=== PATIENT | female | born 2000 | race Caucasian/White ===

== ENCOUNTER 2023-05-25 12:25 | Emergency (ER) | payer OTHER ==
[2023-05-25 13:11] VITALS: RESP 16
[2023-05-25] MEDS ORDERED: SODIUM CHLORIDE 0.9% 2,000 ML IV STA (13:30)
[2023-05-25] MEDS ORDERED: guaiFENesin SYRUP 100MG/5ML 200 MG/10 ML CUP PO ONE (13:36)
[2023-05-25] MEDS ORDERED: METOCLOPRAMIDE 5 MG/ML 2 ML VIAL IVP STA (13:36)
[2023-05-25] MEDS ORDERED: ALBUTEROL NEBULIZED 2.5 MG/3 ML INHALATION STA (13:38)
--- NOTE | 2023-05-25 13:47 | XR ---
EXAMINATION TYPE: XR chest 2V DATE OF EXAM: 05/25/2023 1:38 PM COMPARISON: None TECHNIQUE: XR chest 2V Frontal and lateral views of the chest. CLINICAL INDICATION:Female, 22 years old with history of Cough, TERESA; FINDINGS: Lungs/Pleura: There is no evidence of pleural effusion, focal consolidation, or pneumothorax. Pulmonary vascularity: Unremarkable. Heart/mediastinum: Cardiomediastinal silhouette is unremarkable. Musculoskeletal: No acute osseous pathology. IMPRESSION: No acute cardiopulmonary disease/process.
--- NOTE | 2023-05-25 14:02 | ED ---
URI HPI - General Chief Complaint: Upper Respiratory Infection Stated Complaint: URI Time Seen by Provider: 05/25/23 13:21 Source: patient, RN notes reviewed Mode of arrival: ambulatory Limitations: no limitations - History of Present Illness Initial Comments: this is a 22-year-old female who presents to the emergency department for coughing and congestion. Patient reports ongoing coughing and congestion for about 3 weeks. Patient is 12 weeks . She went to urgent care 2 days ago and had a negative strep test. She was not tested for Covid, influenza, or RSV. She was started on amoxicillin. She took this as prescribed yesterday, but states that she proceeded to vomit a couple of times and is unsure if it was related to the antibiotic, so she did not take it today. She is still having some intermittent nausea. Patient states that she is never sick this long and is concerned about the duration of her symptoms. Denies any fevers, chills, or sick contacts. Denies any shortness of breath or chest pain. Denies any fevers, chills, sore throat, dyspnea, chest pain, palpitations, abdominal pain, diarrhea, back pain, or headaches. MD Complaint: cough, nasal congestion Onset/Timin -: week(s) - Related Data Home Medications Medication Instructions Recorded Confirmed Amoxicillin 500 mg PO Q8H 05/25/23 05/25/23 Kwh-Vvct-Ljolx Acid 1 cap PO DAILY 05/25/23 05/25/23 [-U Capsule (formulary)] Previous Rx's Medication Instructions Recorded Metoclopramide [Reglan] 10 mg PO Q6H PRN #30 tab 05/25/23 Allergies Allergy/AdvReac Type Severity Reaction Status Date / Time No Known Allergies Allergy Verified 05/25/23 14:59 Review of Systems ROS Statement: Those systems with pertinent positive or pertinent negative responses have been documented in the HPI. ROS Other: All systems not noted in ROS Statement are negative. Past Medical History Past Medical History: No Reported History History of Any Multi-Drug Resistant Organisms: None Reported Past Surgical History: No Surgical Hx Reported Past Psychological History: Bipolar Smoking Status: Never smoker Past Alcohol Use History: None Reported Past Drug Use History: None Reported General Exam Limitations: no limitations General appearance: alert, in no apparent distress Head exam: Present: atraumatic, normocephalic, normal inspection Respiratory exam: Present: normal lung sounds bilaterally. Absent: respiratory distress, wheezes, rales, rhonchi, stridor Cardiovascular Exam: Present: regular rate, normal rhythm, normal heart sounds. Absent: systolic murmur, diastolic murmur, rubs, gallop, clicks Neurological exam: Present: alert, oriented X3, CN II-XII intact Psychiatric exam: Present: normal affect, normal mood Skin exam: Present: warm, dry, intact, normal color. Absent: rash Course Vital Signs 05/25/23 05/25/23 05/25/23 12:52 14:09 14:20 Temperature 98.6 F Pulse Rate 100 77 80 Respiratory 16 Rate Blood Pressure 110/56 O2 Sat by Pulse 95 Oximetry 05/25/23 16:03 Temperature 98 F Pulse Rate 78 Respiratory 16 Rate Blood Pressure 121/70 O2 Sat by Pulse 98 Oximetry Medical Decision Making - Medical Decision Making this is a 22-year-old female who presents to the emergency department for coughing and congestion. Was pt. sent in by a medical professional or institution? @ -No Did you speak to anyone other than the patient for history? @ -No Did you review nursing and triage notes? @ -Yes, and I agree, it is accurate with regards to the patient's symptoms. Were old charts reviewed? @ -No Differential Diagnosis? @ -Differential Cough: Influenza, Covid, RSV, croup, allergic rhinitis, GERD, pneumonia, bronchitis, COPD, viral pharyngitis, streptococcal pharyngitis, this is not meant to be an all-inclusive list. EKG interpreted by me (3pts min.)? @ -Not obtained X-rays interpreted by me (1pt min.)? @ -Chest x-ray obtained, my interpretation identifies no localized consolidations or infiltrates. CT interpreted by me (1pt min.)? @ -Not obtained U/S interpreted by me (1pt. min.)? @ -Not obtained What testing was considered but not performed? (CT, X-rays, U/S, labs)? Why? @ -None What meds were considered but not given? Why? @ -I offered IV fluids and Reglan for the nausea and vomiting, however the patient declined. Did you discuss the management of the patient with other professionals? @ -No Did you reconcile home meds? @ -No Was smoking cessation discussed for >3mins.? @ -No Was critical care preformed (if so, how long)? @ -No Were there social determinants of health that impacted care today? How? (Homelessness, low income, unemployed, alcoholism, drug addiction, transportation, low edu. Level, literacy, decrease access to med. care, nursing home, rehab)? @ -No Was there de-escalation of care discussed even if they declined? (Discuss DNR or withdrawal of care, Hospice)? @ -No What co-morbidities impacted this encounter? (DM, HTN, Smoking, COPD, CAD, Cancer, CVA, Hep., AIDS, mental health diagnosis, sleep apnea, morbid obesity)? @ - Was patient admitted / discharged? @ -Discharged. Lab work obtained revealing a low glucose of 62, likely due to the patient's nausea and vomiting and not having much to eat today. She did end up eating while in the emergency department. Patient positive for COVID-19. However, she is no longer in the time frame for antiviral treatment. We discussed a chest x-ray in , in that the chest x-ray does pose radi ation exposure, however there have not been any complications linked to a chest x-ray in , as the x-ray beams do not affect the reproductive organs. Patient is agreeable to this and a chest x-ray was obtained. Chest x-ray reveals no acute process. I did offer IV fluids and Reglan due to the nausea and vomiting, however the patient declined. We also discussed symptomatic management with medications such as an albuterol breathing treatment and Robitussin, and patient was also agreeable to these, and both of them were administered. Prescription for Reglan provided with dosing instructions reviewed for the nausea and vomiting. Advised she slowly advance her diet as tolerated and remain well-hydrated. Also advised that she can take the antibiotic as prescribed by urgent care if she is able to keep it down, however given that she has COVID, this will likely not be of any benefit. We also discussed hupr-ufk-apodedg treatment options for management of her symptoms, and I advised she also check with her TRAUMA PROGRAM MANAGER for treatment options. Patient discharged home in stable condition. Undiagnosed new problem with uncertain prognosis? @ -None Drug Therapy requiring intensive monitoring for toxicity (Heparin, Nitro, Insulin, Cardizem)? @ -None Were any procedures done? @ -None Diagnosis/symptom? @ -COVID-19, nausea and vomiting Acute, or Chronic, or Acute on Chronic? @ -Acute Uncomplicated (without systemic symptoms) or Complicated (systemic symptoms)? @ -Uncomplicated Side effects of treatment? @ -None Exacerbation, Progression, or Severe Exacerbation] @ -Not applicable Poses a threat to life or bodily function? @ -No Return precautions reviewed in depth, the patient is instructed to return to the emergency department with any new, worsening, or concerning symptoms. Patient verbalized understanding. This case was discussed in detail with the attending ED physician, Dr. Martinez. Presentation, findings, and treatment plan discussed in detail as well. - Lab Data Result diagrams: 05/25/23 13:53 05/25/23 13:53 Lab Results 05/25/23 05/25/23 05/25/23 Range/Units 13:53 13:53 13:53 WBC 11.6 H (3.8-10.6) k/uL RBC 3.80 (3.80-5.40) m/uL Hgb 12.3 (11.4-16.0) gm/dL Hct 35.2 (34.0-46.0) % MCV 92.8 (80.0-100.0) fL MCH 32.4 (25.0-35.0) pg MCHC 34.9 (31.0-37.0) g/dL RDW 12.0 (11.5-15.5) % Plt Count 219 (150-450) k/uL MPV 8.0 Neutrophils % 85 % Lymphocytes % 6 % Monocytes % 6 % Eosinophils % 1 % Basophils % 0 % Neutrophils # 9.9 H (1.3-7.7) k/uL Lymphocytes # 0.7 L (1.0-4.8) k/uL Monocytes # 0.7 (0-1.0) k/uL Eosinophils # 0.1 (0-0.7) k/uL Basophils # 0.0 (0-0.2) k/uL Sodium 134 L (137-145) mmol/L Potassium 3.8 (3.5-5.1) mmol/L Chloride 104 (98-107) mmol/L Carbon Dioxide 19 L (22-30) mmol/L Anion Gap 11 mmol/L BUN 9 (7-17) mg/dL Creatinine 0.37 L (0.52-1.04) mg/dL Est GFR (CKD-EPI)AfAm >90 (>60 ml/min/1.73 sqM) Est GFR (CKD-EPI)NonAf >90 (>60 ml/min/1.73 sqM) Glucose 62 L (74-99) mg/dL Calcium 9.0 (8.4-10.2) mg/dL Total Bilirubin 0.6 (0.2-1.3) mg/dL AST 27 (14-36) U/L ALT 12 (4-34) U/L Alkaline Phosphatase 70 (38-126) U/L Total Protein 7.2 (6.3-8.2) g/dL Albumin 3.8 (3.5-5.0) g/dL Influenza Type A (PCR) Not Detected (Not Detectd) Influenza Type B (PCR) Not Detected (Not Detectd) RSV (PCR) Not Detected (Not Detectd) SARS-CoV-2 (PCR) Detected A (Not Detectd) - Radiology Data Radiology results: report reviewed, image reviewed Disposition Clinical Impression: Nausea and vomiting, COVID-19 Disposition: HOME SELF-CARE Instructions (If sedation given, give patient instructions): Coronavirus Disease 2019 (COVID-19), How to Recover from COVID-19 at Home (ED) Additional Instructions: Return to the emergency department with any new, worsening, or concerning symptoms. You can take the Reglan up to every 6 hours as needed for nausea and vomiting. Continue taking your antibiotic as prescribed if you are able to keep it down. Icwk-jgu-hsvzczh cough medicine such as Robitussin is generally considered safe in . Make sure that this does not contain alcohol. You can also have ybys-kar-kvbgrmk antihistamines such as Benadryl and chlor-trimeton. Flonase nasal spray and Vicks vapor rub are other options. Follow up with your primary care provider in 1-2 days. Prescriptions: Metoclopramide [Reglan] 10 mg PO Q6H PRN #30 tab PRN Reason: Nausea And Vomiting Is patient prescribed a controlled substance at d/c from ED?: No Referrals: None,Stated [Primary Care Provider] - 1-2 days
[2023-05-25 14:23] LABS: Basophils % (A) 0 %; Eosinophils # (A) 0.1 k/uL (0-0.7); Eosinophils % (A) 1 %; HCT 35.2 % (34.0-46.0); HGB 12.3 gm/dL (11.4-16.0); Lymphocytes # (A) 0.7 k/uL (1.0-4.8); Lymphocytes % (A) 6 %; MCH 32.4 pg (25.0-35.0); MCHC 34.9 g/dL (31.0-37.0); MCV 92.8 fL (80.0-100.0); Monocytes # (A) 0.7 k/uL (0-1.0); Monocytes % (A) 6 %; Neutrophils # (A) 9.9 k/uL (1.3-7.7); Neutrophils % (A) 85 %; Platelet Count 219 k/uL (150-450); WBC 11.6 k/uL (3.8-10.6)
[2023-05-25 14:41] LABS: ALT 12 U/L (4-34); AST 27 U/L (14-36); African American GFR (CKD) >90 (>60 ml/min/1.73 sqM); Albumin 3.8 g/dL (3.5-5.0); Alkaline Phosphatase 70 U/L (38-126); Anion Gap 11 mmol/L; Blood Urea Nitrogen 9 mg/dL (7-17); Carbon Dioxide 19 mmol/L (22-30); Chloride 104 mmol/L (98-107); Glucose 62 mg/dL (74-99); Non-African American GFR(CKD) >90 (>60 ml/min/1.73 sqM); Potassium 3.8 mmol/L (3.5-5.1); Sodium 134 mmol/L (137-145); Total Bilirubin 0.6 mg/dL (0.2-1.3); Total Protein 7.2 g/dL (6.3-8.2)
[2023-05-25 16:19] VITALS: BP 121/70; PULSE 78; TEMP 98
== END 2023-05-25 16:02 | disposition home or self-care (01) ==
LOC: EC 12:25
DX: O98.511 Other viral diseases complicating pregnancy, first trimester (principal); U07.1 COVID-19; Z3A.12 12 weeks gestation of pregnancy
CPT/HCPCS: 36415; 71046; 80053; 85025; 87636; 94640; 99283

== ENCOUNTER 2023-06-20 17:11 | Emergency (ER) | payer OTHER ==
[2023-06-20 17:16] VITALS: TEMP 98.3
--- NOTE | 2023-06-20 17:38 | ED ---
General Adult HPI - General Chief complaint: Abdominal Pain Stated complaint: Cramping 17 weeks Time Seen by Provider: 06/20/23 17:16 Source: patient, RN notes reviewed Mode of arrival: ambulatory Limitations: no limitations - History of Present Illness Initial comments: Patient is a 22-year-old female presented ER with chief complaint of increased uterine cramping. Patient is a at 17 weeks' gestation. Patient states her SURGICAL INSTRUMENT REPAIR SPECIALIST is out of [facility] and told her she has a low lying placenta. Patient reports she has had increasing cramping in the past hour which is more prominent on the right side. She denies any vaginal bleeding or discharge. She denies any fevers, chills, nightsweats, chest pain, shortness of breath, urinary complaints. - Related Data Home Medications Medication Instructions Recorded Confirmed Amoxicillin 500 mg PO Q8H 05/25/23 05/25/23 Aqz-Gkoy-Ocwbq Acid 1 cap PO DAILY 05/25/23 05/25/23 [-U Capsule (formulary)] Previous Rx's Medication Instructions Recorded Metoclopramide [Reglan] 10 mg PO Q6H PRN #30 tab 05/25/23 Allergies Allergy/AdvReac Type Severity Reaction Status Date / Time No Known Allergies Allergy Verified 06/20/23 17:13 Review of Systems ROS Statement: Those systems with pertinent positive or pertinent negative responses have been documented in the HPI. ROS Other: All systems not noted in ROS Statement are negative. Past Medical History Past Medical History: No Reported History History of Any Multi-Drug Resistant Organisms: None Reported Past Surgical History: No Surgical Hx Reported Past Psychological History: Bipolar Smoking Status: Never smoker Past Alcohol Use History: None Reported Past Drug Use History: None Reported General Exam Limitations: no limitations General appearance: alert, in no apparent distress Respiratory exam: Present: normal lung sounds bilaterally. Absent: respiratory distress, wheezes, rales, rhonchi, stridor Cardiovascular Exam: Present: regular rate, normal rhythm, normal heart sounds. Absent: systolic murmur, diastolic murmur, rubs, gallop, clicks GI/Abdominal exam: Present: soft, tenderness (suprapubic), normal bowel sounds Neurological exam: Present: alert, oriented X3, CN II-XII intact Psychiatric exam: Present: normal affect, normal mood Skin exam: Present: warm, dry, intact, normal color. Absent: rash Course Vital Signs 06/20/23 06/20/23 06/20/23 17:13 18:57 20:16 Temperature 98.3 F Pulse Rate 69 78 73 Respiratory 16 18 17 Rate Blood Pressure 115/73 127/64 110/57 O2 Sat by Pulse 100 99 100 Oximetry Medical Decision Making - Medical Decision Making Was pt. sent in by a medical professional or institution (, PA, MAIL PROCESSING MACHINE OPERATOR, urgent care, hospital, or [facility]...) When possible be specific @ -No Did you speak to anyone other than the patient for history (EMS, parent, family, police, friend...)? What history was obtained from this source @ -No Did you review nursing and triage notes (agree or disagree)? Why? @ -I reviewed and agree with nursing and triage notes Were old charts reviewed (outside hosp., previous admission, EMS record, old EKG, old radiological studies, urgent care reports/EKG's, [facility] records)? Report findings @ -No old charts were reviewed Differential Diagnosis (chest pain, altered mental status, abdominal pain women, abdominal pain men, vaginal bleeding, weakness, fever, dyspnea, syncope, heada robby, dizziness, GI bleed, back pain, seizure, CVA, palpatations, mental health, musculoskeletal)? @ -Differential Abdominal Pain Women: Appendicitis, Cholecystitis, diverticulosis, ischemic bowel, pancreatitis, hepatitis, UTI, gastroenteritis, AAA, incarcerated hernia, bowel obstruction, constipation, inflammatory bowel, hepatitis, peptic ulcer disease, splenic infarction, perforated viscus, vulvitis, ovarian torsion, PID, kidney stone, placenta abruption, this is not meant to be an all-inclusive listcable EKG interpreted by me (3pts min.). @ -None X-rays interpreted by me (1pt min.). @ -None done CT interpreted by me (1pt min.). @ -None done U/S interpreted by me (1pt. min.). @ -Transabdominal ultrasound shows a single IUP measuring 17 weeks 3 days. GERALDINE is 14.5 cm. Cervical length is slightly below normal with no evidence of funneling or placenta previa. What testing was considered but not performed or refused? (CT, X-rays, U/S, labs)? Why? @ -None What meds were considered but not given or refused? Why? @ -None Did you discuss the management of the patient with other professionals (professionals i.e. , PA, MAIL PROCESSING MACHINE OPERATOR, lab, RT, psych nurse, nephrology social worker, surveillance observer, teacher, field crop technical officer, continuous pillowcase cutter)? Give summary @ -No Was smoking cessation discussed for >3mins.? @ -No Was critical care preformed (if so, how long)? @ -No Were there social determinants of health that impacted care today? How? (Ho melessness, low income, unemployed, alcoholism, drug addiction, transportation, low edu. Level, literacy, decrease access to med. care, group home, rehab)? @ -No Was there de-escalation of care discussed even if they declined (Discuss DNR or withdrawal of care, Hospice)? DNR status @ -No What co-morbidities impacted this encounter? (DM, HTN, Smoking, COPD, CAD, Cancer, CVA, ARF, Chemo, Hep., AIDS, mental health diagnosis, sleep apnea, morbid obesity)? @ -None Was patient admitted / discharged? Hospital course, mention meds given and route, prescriptions, significant lab abnormalities, going to OR and other pertinent info. @ -Discharge. Labs obtained in the ER were within normal limits. Urine analysis was negative. Ultrasound shows a single IUP measuring 17 weeks 3 days. GERALDINE is 14.5 cervical length is slightly below normal. Patient was discharged home in stable condition with follow-up to her SURGICAL INSTRUMENT REPAIR SPECIALIST. I discussed with the patient's reasons for returning to the ER including vaginal bleeding, increasing cramping or any change in her symptoms. Patient expressed understanding and agreement with care plan. Undiagnosed new problem with uncertain prognosis? @ -No Drug Therapy requiring intensive monitoring for toxicity (Heparin, Nitro, Insulin, Cardizem)? @ -No Were any procedures done? @ -No Diagnosis/symptom? @ -Uterine cramping/ Acute, or Chronic, or Acute on Chronic? @ -Acute Uncomplicated (without systemic symptoms) or Complicated (systemic symptoms)? @ -Uncomplicated Side effects of treatment? @ -No Exacerbation, Progression, or Severe Exacerbation? @ -No Poses a threat to life or bodily function? How? (Chest pain, [place], NH, pneumonia, PE, COPD, DKA, ARF, appy, cholecystitis, CVA, Diverticulitis, Homicidal, Suicidal, threat to staff... and all critical care pts) @ -No - Lab Data Result diagrams: 06/20/23 17:37 06/20/23 17:37 Lab Results 06/20/23 06/20/23 06/20/23 Range/Units 17:37 17:37 17:37 WBC 10.8 H (3.8-10.6) k/uL RBC 3.55 L (3.80-5.40) m/uL Hgb 11.9 (11.4-16.0) gm/dL Hct 33.4 L (34.0-46.0) % MCV 94.0 (80.0-100.0) fL MCH 33.5 (25.0-35.0) pg MCHC 35.7 (31.0-37.0) g/dL RDW 12.0 (11.5-15.5) % Plt Count 211 (150-450) k/uL MPV 8.1 Sodium 136 L (137-145) mmol/L Potassium 4.1 (3.5-5.1) mmol/L Chloride 105 (98-107) mmol/L Carbon Dioxide 25 (22-30) mmol/L Anion Gap 6 mmol/L BUN 13 (7-17) mg/dL Creatinine 0.55 (0.52-1.04) mg/dL Est GFR (CKD-EPI)AfAm >90 (>60 ml/min/1.73 sqM) Est GFR (CKD-EPI)NonAf >90 (>60 ml/min/1.73 sqM) Glucose 73 L (74-99) mg/dL Calcium 8.9 (8.4-10.2) mg/dL Total Bilirubin 0.3 (0.2-1.3) mg/dL AST 22 (14-36) U/L ALT 15 (4-34) U/L Alkaline Phosphatase 55 (38-126) U/L Total Protein 6.7 (6.3-8.2) g/dL Albumin 3.5 (3.5-5.0) g/dL HCG, Quant 74531.2 mIU/mL Urine Color Light Yellow Urine Appearance Clear (Clear) Urine pH 6.5 (5.0-8.0) Ur Specific [place] 1.025 (1.001-1.035) Urine Protein Negative (Negative) Urine Glucose (UA) Negative (Negative) Urine Ketones Negative (Negative) Urine Blood Negative (Negative) Urine Nitrite Negative (Negative) Urine Bilirubin Negative (Negative) Urine Urobilinogen <2.0 (<2.0) mg/dL Ur Leukocyte Esterase Negative (Negative) - Radiology Data Radiology results: report reviewed, image reviewed Disposition Clinical Impression: Uterine cramping, Disposition: HOME SELF-CARE Condition: Stable Additional Instructions: Please return to the Emergency Department if symptoms worsen or any other concerns. Please follow-up outpatient with your SURGICAL INSTRUMENT REPAIR SPECIALIST. Is patient prescribed a controlled substance at d/c from ED?: No Referrals: None,Stated [Primary Care Provider] - 1-2 days Time of Disposition: 19:47
[2023-06-20 17:52] LABS: HCT 33.4 % (34.0-46.0); HGB 11.9 gm/dL (11.4-16.0); MCH 33.5 pg (25.0-35.0); MCHC 35.7 g/dL (31.0-37.0); Mean Platelet Volume 8.1; Platelet Count 211 k/uL (150-450); RBC 3.55 m/uL (3.80-5.40); WBC 10.8 k/uL (3.8-10.6)
[2023-06-20 18:04] LABS: ALT 15 U/L (4-34); AST 22 U/L (14-36); African American GFR (CKD) >90 (>60 ml/min/1.73 sqM); Albumin 3.5 g/dL (3.5-5.0); Alkaline Phosphatase 55 U/L (38-126); Anion Gap 6 mmol/L; Blood Urea Nitrogen 13 mg/dL (7-17); Calcium 8.9 mg/dL (8.4-10.2); Carbon Dioxide 25 mmol/L (22-30); Chloride 105 mmol/L (98-107); Glucose 73 mg/dL (74-99); Non-African American GFR(CKD) >90 (>60 ml/min/1.73 sqM); Potassium 4.1 mmol/L (3.5-5.1); Sodium 136 mmol/L (137-145); Total Bilirubin 0.3 mg/dL (0.2-1.3); Total Protein 6.7 g/dL (6.3-8.2)
[2023-06-20 18:05] LABS: Appearance,Urine Clear (Clear); Bilirubin,Urine Negative (Negative); Blood,Urine Negative (Negative); Color,Urine Light Yellow; Glucose,Urine (UA) Negative (Negative); Ketones,Urine Negative (Negative); Leukocyte Esterase,Urine Negative (Negative); Nitrite,Urine Negative (Negative); PH, Urine 6.5 (5.0-8.0); Protein,Urine Negative (Negative); Specific Gravity,Urine 1.025 (1.001-1.035); Urobilinogen,Urine <2.0 mg/dL (<2.0)
--- NOTE | 2023-06-20 19:31 | US ---
EXAMINATION TYPE: US OB >= 14 wk fetus DATE OF EXAM: 06/20/2023 COMPARISON: None CLINICAL INDICATION: Female, 22 years old with history of cramping; cramping x 1 hour, no bleeding, G 1 TECHNIQUE: Transabdominal ultrasound of the gravid uterus. GESTATIONAL AGE / DATING Physician Established: (17 weeks/5 days) EDC: 11/23/2023 Dates by LMP: LMP unknown Dates by First Scan: No previous this is first scan Dates by Current Scan: (17 weeks/3 days) EDC: 11/25/2023 SURVEY IUP: Single PLACENTA: Anterior PREVIA: No Previa GERALDINE: 14.5 cm, Normal CERVICAL LENGTH (transabdominal: norm > 3.0cm): 2.8 cm - bladder not fully distended and patient stat es she cannot have TV because her OB doctor states she has low lying placenta and needs pelvic rest BIOMETRY PRESENTATION: Variable BPD: 3.7 cm 17 weeks / 2 days HC: 13.6 cm 17 weeks / 1 days AC: 12.3 cm 18 weeks / 0 days FL: 2.3 cm 16 weeks / 6 days ESTIMATED WEIGHT IN GRAMS: 192 grams ESTIMATED WEIGHT IN LBS/OZ: 0 lbs. 7 oz. WEIGHT PERCENTAGE BASED ON ESTABLISHED DATES: 24% HC/AC: 1.1 Normal FL/AC: 18 Normal HEART RATE: 146 bpm RHYTHM: Normal No detailed anatomic survey was performed during this emergency examination. IMPRESSION: 1. Single, live intrauterine gestation measuring 17 weeks 3 days by current scan, see measurements a teddy. 2. GERALDINE is normal, 14.5 cm. 3. Cervical length measures slightly below normal, without evidence of funneling or placenta previa.
[2023-06-20 20:27] VITALS: BP 110/57; PULSE 73; RESP 17
== END 2023-06-20 20:20 | disposition home or self-care (01) ==
LOC: EC 17:11
DX: O26.892 Other specified pregnancy related conditions, second trimester (principal); N94.89 Other specified conditions associated with female genital organs and menstrual cycle; Z3A.17 17 weeks gestation of pregnancy
CPT/HCPCS: 36415; 76805; 80053; 81003; 84702; 85027; 99284

== ENCOUNTER 2023-09-29 12:03 | Outpatient (CLI) | payer OTHER ==
[2023-09-29 12:37] LABS: Appearance,Urine Clear (Clear); Bacteria,Urine Rare /hpf; Bilirubin,Urine Negative (Negative); Blood,Urine Negative (Negative); Color,Urine Light Yellow; Glucose,Urine (UA) Negative (Negative); Ketones,Urine Negative (Negative); Leukocyte Esterase,Urine Trace (Negative); Mucus,Urine Rare /hpf; Nitrite,Urine Negative (Negative); Protein,Urine Negative (Negative); RBC,Urine <1 /hpf (0-5); Specific Gravity,Urine 1.017 (1.001-1.035); Squamous Epithelial Cell,Urine <1 /hpf (0-4); Urobilinogen,Urine <2.0 mg/dL (<2.0); WBC,Urine 11 /hpf (0-5)
[2023-09-29 14:46] VITALS: BP 110/67; PULSE 93; RESP 15; TEMP 96.9
--- NOTE | 2023-10-11 10:36 | P.MSEPDOC ---
Presenting Problems - Arrival Data Date of Arrival on Unit: 09/29/23 Time of Arrival on Unit: 12:10 Mode of Transport: Ambulatory - Complaint OB-Reason for Admission/Chief Complaint: Decreased Movement Comment: also c/o generalized rash and lip blisters Medical History - Information : 1 Para: 0 Term: 0 : 0 Abortions: Spontaneous or Elective: 0 Number of Living Children: 0 - Gestational Age Gestational Age by JONAS (wks/days): 32 Weeks and 1 Days Review of Systems - Review of Systems Constitutional: No problems Breast: No problems ENT: No problems Cardiovascular: No problems Respiratory: No problems Gastrointestinal: No problems Genitourinary: No problems Musculoskeletal: No problems Neurological: No problems Skin: Rash, Itching Vital Signs - Temperature Temperature: 96.9 F Temperature Source: Temporal Artery Scan - Pulse Pulse Oximetery Pulse Rate: 93 Pulse Assessment Method: Pulse Oximetry - Respirations Respiratory Rate: 15 Oxygen Delivery Method: Room Air O2 Sat by Pulse Oximetry: 97 - Blood Pressure Right Arm Sitting Blood Pressure: 110/67 Blood Pressure Mean: 81 Blood Pressure Source: Automatic Cuff Medical Screen Scoring - Cervical Exam Membranes: Intact - Assessment - Baby A Baseline FHR: 130 Heart Rate - NICHD Category: Category I (Normal) NST: Reactive Maternal Triage Index - Urgent/Priority 2 Urgent Priority 2: Yes Provider Notified: Lizeth Hooper Provider Notified Time: 12:50 Criteria Met for Priority 2: decreased movement per pt on arrival. Reactive NST within 30 min. pt has appt with her OB tomorrow. Disposition - Disposition OB Disposition: Physician follow up in office, Triage, Discharge to home, Written follow up instructions reviewed Discharge Date: 09/29/23 Discharge Time: 13:50 I agree with the RN Medical Screening Exam: Yes Physician's MSE Comment: I have neither seen nor examined the patient Case reviewed; plan agreed upon as documented in EMR&OBIX.: Yes Diagnosis: MATERNAL CARE FOR PROBLEM, UNSP, THIRD * DO NOT USE *
== END 2023-09-29 13:50 | disposition home or self-care (01) ==
LOC: FBPOP 12:03
PROVIDERS: ATTEND Obstetrics & Gynecology
DX: O36.8131 Decreased fetal movements, third trimester, fetus 1 (principal); S00.521A Blister (nonthermal) of lip, initial encounter; O9A.213 Injury, poisoning and certain other consequences of external causes complicating pregnancy, third trimester; O99.713 Diseases of the skin and subcutaneous tissue complicating pregnancy, third trimester; R21 Rash and other nonspecific skin eruption; Z3A.32 32 weeks gestation of pregnancy; X58.XXXA Exposure to other specified factors, initial encounter
CPT/HCPCS: 59025; 81001; G0463; 99213

== ENCOUNTER 2024-04-30 20:22 | Emergency (ER) | payer OTHER ==
[2024-04-30 20:33] VITALS: RESP 18
[2024-04-30 20:40] VITALS: TEMP 98.4
--- NOTE | 2024-04-30 21:35 | ED ---
Eye Problem HPI - General Chief complaint: Eye Problems Stated complaint: eye injury Time Seen by Provider: 04/30/24 20:44 Source: patient, RN notes reviewed Mode of arrival: ambulatory Limitations: no limitations - History of Present Illness Initial comments: 23-year-old female presenting for bilateral eye pain x 5 hours. States she [place], when she gradually began to experience bilateral eye irritation. States the symptoms are intermittent. She was wearing contact lenses when the pain began, but has taken them out since symptom onset. She believes she may have a "sunburn to her eye". Denies eye drainage or vision changes. Denies foreign body sensation. - Related Data Home Medications Medication Instructions Recorded Confirmed Amoxicillin 500 mg PO Q8H 05/25/23 05/25/23 Xab-Pvoo-Nhbkz Acid 1 cap PO DAILY 05/25/23 05/25/23 [-U Capsule (formulary)] Previous Rx's Medication Instructions Recorded Erythromycin Ophth Oint [Romycin 1 applic BOTH EYES QID 7 Days #1 gm 04/30/24 Ophth Oint] Ofloxacin 0.3% Ophth Soln [Ocuflox 2 drops BOTH EYES BID 7 Days #10 ml 04/30/24 Ophth Soln] Allergies Allergy/AdvReac Type Severity Reaction Status Date / Time No Known Allergies Allergy Verified 04/30/24 20:33 Review of Systems ROS Statement: Those systems with pertinent positive or pertinent negative responses have been documented in the HPI. ROS Other: All systems not noted in ROS Statement are negative. Past Medical History Past Medical History: No Reported History History of Any Multi-Drug Resistant Organisms: None Reported Past Surgical History: No Surgical Hx Reported Past Psychological History: Bipolar Smoking Status: Never smoker Past Alcohol Use History: Rare Past Drug Use History: None Reported General Exam Limitations: no limitations General appearance: alert, in no apparent distress Head exam: Present: atraumatic, normocephalic, normal inspection Eye exam: Present: normal appearance, PERRL, EOMI, other (Fluorescein stain revealed no corneal abrasions or ulcerations. Visual acuity 20/20 bilaterally). Absent: scleral icterus, conjunctival injection, periorbital swelling ENT exam: Present: normal exam, mucous membranes moist Neurological exam: Present: alert, oriented X3 Psychiatric exam: Present: normal affect, normal mood Skin exam: Present: warm, dry, intact, normal color. Absent: rash Course Vital Signs 04/30/24 04/30/24 04/30/24 20:31 20:39 23:33 Temperature 98 F 98.4 F 98.4 F Pulse Rate 74 89 78 Respiratory 18 18 18 Rate Blood Pressure 114/75 121/69 108/67 O2 Sat by Pulse 100 99 99 Oximetry Medical Decision Making - Medical Decision Making Was pt. sent in by a medical professional or institution (SUSANNAH Capellan, [employer]IDE [employer], urgent care, hospital, or jail...) When possible be specific @ -No Did you speak to anyone other than the patient for history (EMS, parent, family, police, friend...)? What history was obtained from this source @ -No Did you review nursing and triage notes (agree or disagree)? Why? @ -I reviewed and agree with nursing and triage notes Were old charts reviewed (outside hosp., previous admission, EMS record, old EKG, old radiological studies, urgent care reports/EKG's, jail records)? Report findings @ -No old charts were reviewed Differential Diagnosis (chest pain, altered mental status, abdominal pain women, abdominal pain men, vaginal bleeding, weakness, fever, dyspnea, syncope, headache, dizziness, GI bleed, back pain, seizure, CVA, palpatations, mental health, musculoskeletal)? @ -Corneal abrasion, corneal ulceration, foreign body, glaucoma, conjunctivitis, retinal detachment EKG interpreted by me (3pts min.). @ -None X-rays interpreted by me (1pt min.). @ -None done CT interpreted by me (1pt min.). @ -None done U/S interpreted by me (1pt. min.). @ -None done What testing was considered but not performed or refused? (CT, X-rays, U/S, labs)? Why? @ -None What meds were considered but not given or refused? Why? @ -None Did you discuss the management of the patient with other professionals (prof goodman i.e. SUSANNAH Capellan, [employer]IC, lab, RT, psych nurse, case management social worker, pile driving supervisor, teacher, ict customer support officer, case management social worker)? Give summary @ -No Was smoking cessation discussed for >3mins.? @ -No Was critical care preformed (if so, how long)? @ -No Were there social determinants of health that impacted care today? How? (Homelessness, low income, unemployed, alcoholism, drug addiction, transportation, low edu. Level, literacy, decrease access to med. care, detention, rehab)? @ -No Was there de-escalation of care discussed even if they declined (Discuss DNR or withdrawal of care, Hospice)? DNR status @ -No What co-morbidities impacted this encounter? (DM, HTN, Smoking, COPD, CAD, Cancer, CVA, ARF, Chemo, Hep., AIDS, mental health diagnosis, sleep apnea, morbid obesity)? @ -None Was patient admitted / discharged? Hospital course, mention meds given and route, prescriptions, significant lab abnormalities, going to OR and other pertinent info. @ -Patient was discharged. This is a 23-year-old female presenting with bilateral eye pain x 1 day. States she was at a pumpkin patch earlier today when she started to feel irritation in both eyes. Denies vision changes or drainage. Vital signs within normal limits. Visual acuity 20/20 bilaterally. No sign of bacterial infection upon examination. Fluorescein stain is unremarkable, no obvious corneal abrasions or ulcerations. Discussed with patient we will treat with ofloxacin drops as patient is a contact lens wearer, as well as with erythromycin ointment to cover for likely corneal abrasion. Strict return precautions discussed and advised to follow-up with ophthalmology on Thursday. Patient is agreeable to plan. Case was discussed with my ED attending Dr. Melgoza. Patient discharged in stable condition. Undiagnosed new problem with uncertain prognosis? @ -No Drug Therapy requiring intensive monitoring for toxicity (Heparin, Nitro, Insulin, Cardizem)? @ -No Were any procedures done? @ -No Diagnosis/symptom? @ -Corneal abrasion of both eyes Acute, or Chronic, or Acute on Chronic? @ -Acute Uncomplicated (without systemic symptoms) or Complicated (systemic symptoms)? @ -Uncomplicated Side effects of treatment? @ -No Exacerbation, Progression, or Severe Exacerbation? @ -No Poses a threat to life or bodily function? How? (Chest pain, [place], [place], pneumonia, PE, COPD, DKA, ARF, appy, cholecystitis, CVA, Diverticulitis, Homicidal, Suicidal, threat to staff... and all critical care pts) @ -No Disposition Clinical Impression: Corneal abrasion of both eyes Disposition: HOME SELF-CARE Condition: Stable Instructions (If sedation given, give patient instructions): Corneal Abrasion (ED) Additional Instructions: Please use erythromycin and ofloxacin drops as prescribed. Avoid wearing contacts until symptoms fully resolved. Follow-up with ophthalmology on Thursday. Please return to the Emergency Department if symptoms worsen or any other concerns. Prescriptions: Ofloxacin 0.3% Ophth Soln [Ocuflox Ophth Soln] 2 drops BOTH EYES BID 7 Days #10 ml Erythromycin Ophth Oint [Romycin Ophth Oint] 1 applic BOTH EYES QID 7 Days #1 gm Is patient prescribed a controlled substance at d/c from ED?: No Referrals: None,Stated [Primary Care Provider] - 1-2 days Time of Disposition: 22:59
[2024-04-30] MEDS: PROPARACAINE 0.5% OPHTH DROPS 15 ML BTL LEFT EYE STA (22:01)
[2024-04-30] MEDS: PROPARACAINE 0.5% OPHTH DROPS 15 ML BTL RIGHT EYE STA (22:01)
[2024-04-30] MEDS: FLUORESCEIN STRIPS 1 MG STRIP BOTH EYES ONE (22:02)
[2024-04-30 23:35] VITALS: BP 108/67; PULSE 78
== END 2024-04-30 23:40 | disposition home or self-care (01) ==
LOC: EC 20:22
CPT/HCPCS: 99283

== ENCOUNTER 2024-11-25 18:11 | Outpatient (CLI) | payer OTHER ==
--- NOTE | 2024-11-25 21:01 | US ---
EXAMINATION TYPE: US OB BPP wo non-stress DATE OF EXAM: 11/25/2024 COMPARISON: NONE for this CLINICAL INDICATION: Female, 24 years old with history of IUGR; IUGR. TECHNIQUE: Transabdominal (TA). Scoring by the curbing stonecutter during real-time assessment. FINDINGS: BPP PARAMETERS: PRESENTATION: Vertex HEART RATE: 143 bpm RHYTHM: Normal GERALDINE: 9.8 cm DIAPHRAGM IMAGED: Yes BPP SCORIN. Breathin (1 episode of breathing of 30 second duration in 30 minutes of scanning time) 2. Movement: 2 (at least 3 discrete body movements in 30 minutes) 3. Tone: 2 (1 episode of active flexion/extension of limb) 4. GERALDINE: 2 (GERALDINE index > 5cm) PHOTO COLORER NOTES: IMPRESSION: TOTAL SCORE: 8 / 8 [facility], , 11/25/2024 8:58 PM
[2024-11-25 21:06] VITALS: BP 105/70; PULSE 74; RESP 16; TEMP 97.2
--- NOTE | 2024-12-21 20:02 | P.MSEPDOC ---
Presenting Problems - Arrival Data Date of Arrival on Unit: 11/25/24 Time of Arrival on Unit: 18:11 Mode of Transport: Stretcher - Complaint OB-Reason for Admission/Chief Complaint: NST Comment: pt. missed her OB apt. yesturday for her weekly NST and unstrasound due to IUGR Medical History - Information : 2 Para: 1 Term: 1 : 0 Abortions: Spontaneous or Elective: 0 Number of Living Children: 1 - Gestational Age Gestational Age by JONAS (wks/days): 35 Weeks and 3 Days - History Comment: IUGR Review of Systems - Review of Systems Constitutional: No problems Breast: No problems ENT: No problems Cardiovascular: No problems Respiratory: No problems Gastrointestinal: No problems Genitourinary: No problems Musculoskeletal: No problems Neurological: No problems Skin: No problems Vital Signs - Temperature Temperature: 97.2 F Temperature Source: Temporal Artery Scan - Pulse Pulse Oximetery Pulse Rate: 74 Pulse Assessment Method: Automatic Cuff - Respirations Respiratory Rate: 16 Oxygen Delivery Method: Room Air O2 Sat by Pulse Oximetry: 99 - Blood Pressure Right Arm Blood Pressure: 105/70 Blood Pressure Mean: 81 Blood Pressure Source: Automatic Cuff Medical Screen Scoring - Assessment - Baby A Baseline FHR: 125 Heart Rate - NICHD Category: Category I (Normal) NST: Reactive Physician Notification - Physician Notified Physician Notified Date: 11/25/24 Physician Notified Time: 21:02 Physician: Lizeth Hooper - Notification Comment Comment: reviewed US and BPP results Maternal Triage Index - Stat/Priority 1 Stat Priority 1: No - Urgent/Priority 2 Urgent Priority 2: No - Prompt/Priority 3 Prompt Priority 3: No - Non-Urgent/Priority 4 Non-Urgent Priority 4: No - Scheduled/Requesting Priority 5 Scheduled/Requesting Priority 5: Yes Criteria Met for Priority 5: missed yesturdays office apt. for her weekly NST and ultrasound, orders for NST and BPP Disposition - Disposition OB Disposition: Discharge to home Discharge Date: 11/25/24 Discharge Time: 21:05 I agree with the RN Medical Screening Exam: Yes Physician's MSE Comment: I have neither seen no examined the patient Case reviewed; plan agreed upon as documented in EMR&OBIX.: Yes Diagnosis: RELATED CONDITIONS, UNSPECIFIED, THIRD TRIMESTER
== END 2024-11-25 21:05 | disposition home or self-care (01) ==
LOC: FBPOP 18:11
PROVIDERS: ATTEND Obstetrics & Gynecology
DX: O36.5930 Maternal care for other known or suspected poor fetal growth, third trimester, not applicable or unspecified (principal); Z3A.35 35 weeks gestation of pregnancy
CPT/HCPCS: 59025; 76819; G0463; 99213

== ENCOUNTER 2024-12-09 09:47 | Outpatient (CLI) | payer OTHER | END 2024-12-09 10:40 | disposition home or self-care (01) | LOC: FBPOP 09:47 | PROVIDERS: ATTEND Obstetrics & Gynecology | DX: Z34.93 Encounter for supervision of normal pregnancy, unspecified, third trimester (principal); Z3A.37 37 weeks gestation of pregnancy | CPT/HCPCS: 59025 ==

== ENCOUNTER 2024-12-13 09:37 | Inpatient (IN) | payer OTHER ==
[2024-12-13] MEDS ORDERED: miSOPROStoL 200 MCG TAB PO PRN (10:03)
[2024-12-13] MEDS ORDERED: METHYLERGONOVINE 0.2 MG/ML 1 ML AMP IM PRN (10:03)
[2024-12-13] MEDS ORDERED: CARBOPROST TROMETHAMINE 250 MCG/ML 1 ML AMP IM PRN (10:03)
[2024-12-13] MEDS ORDERED: OXYTOCIN 10 UNIT/ML 1 ML VIAL IM PRN (10:03)
[2024-12-13] MEDS ORDERED: TRANEXAMIC 1,000 MG/100ML-NACL 1,000 MG in EMPTY BAG 1 BAG IV PRN (10:03)
[2024-12-13] MEDS: LACTATED RINGERS 1,000 ML IV ONE (10:20)
[2024-12-13 10:33] LABS: Basophils # (A) 0.07 10*3/uL (0.00-0.10); Basophils % (A) 0.7 %; Eosinophils # (A) 0.09 10*3/uL (0.04-0.35); Eosinophils % (A) 0.9 %; HCT 33.9 % (37.2-46.3); HGB 11.6 g/dL (12.0-15.0); Lymphocytes # (A) 1.97 10*3/uL (0.90-5.00); Lymphocytes % (A) 19.2 %; MCH 31.9 pg (27.0-32.0); MCHC 34.2 g/dL (32.0-37.0); MCV 93.1 fL (80.0-97.0); Mean Platelet Volume 11.5 fL (9.5-12.2); Monocytes # (A) 0.68 10*3/uL (0.20-1.00); Monocytes % (A) 6.6 %; Neutrophils # (A) 7.41 10*3/uL (1.80-7.70); Platelet Count 190 10*3/uL (140-440); RBC 3.64 10*6/uL (4.10-5.20); RDW 11.6 % (11.5-14.5); WBC 10.28 10*3/uL (4.50-10.00)
[2024-12-13] MEDS: LACTATED RINGERS 1,000 ML IV SCH (11:53)
[2024-12-13] MEDS: CITRIC ACID-SODIUM CITRATE 15 ML CUP PO ONE (11:54)
[2024-12-13] MEDS: ceFAZolin 2 GM in DEXTROSE 5% IN WATER 50 ML IVPB ONE (11:54)
--- NOTE | 2024-12-13 12:09 | P.HPOB ---
History of Present Illness H&P Date: 12/13/24 Chief Complaint: 38-0/7 weeks, IUGR, history of ruptured symphysis The patient is a 24-year-old 2 para 1-0-0-1 admitted at 38-0/7 weeks as established by last menstrual period and confirmed by 13-week ultrasound. She is admitted for elective primary section secondary to a history of IUGR discovered in the third trimester with reassuring testing, though somewhat spotty, on a twice weekly basis after the diagnosis and a history of a previous ruptured symphysis pubis with her first vaginal delivery. As noted above, her was complicated by the diagnosis of IUGR though growth has remained relatively constant throughout. She is Rh- and received RhoGAM at 28 weeks. On labor delivery, all signs are reassuring with a category 1 heart rate tracing. Obstetrical history: 2 para 1-0-0-1 with [facility] she had a pubic symphysis with torn ligaments and has requested elective primary delivery. EDC of 12/27/2024 was established by last menstrual period and confirmed by 13-week ultrasound. Laboratory workup demonstrates a blood type of O- with a negative antibody screen. Rubella status is immune. The remainder of the laboratory workup was within normal limits. 1 hour Glucola was normal and group B strep status is negative. Gynecologic history: Unremarkable with no history of any infections to include STDs. Review of Systems Review of systems is confined to history of present illness. Past Medical History Past Medical History: No Reported History History of Any Multi-Drug Resistant Organisms: None Reported Past Surgical History: No Surgical Hx Reported Past Anesthesia/Blood Transfusion Reactions: No Reported Reaction Past Psychological History: Bipolar, Depression Smoking Status: Former smoker Past Alcohol Use History: None Reported Additional Past Alcohol Use History / Comment(s): rare alcohol use prior to Past Drug Use History: None Reported - Past Family History Father Family Medical History: Asthma, Deep Vein Thrombosis (DVT) Medications and Allergies Home Medications Medication Instructions Recorded Confirmed Type Xfk-Rlnr-Tiylb Acid 1 cap PO DAILY 05/25/23 12/13/24 History [-U Capsule (formulary)] Allergies Allergy/AdvReac Type Severity Reaction Status Date / Time No Known Allergies Allergy Verified 12/13/24 10:03 Exam Vital Signs Temp Pulse Resp BP Pulse Ox 12/13/24 10:30 97.3 F L 71 16 107/65 97 Intake and Output 12/12/24 12/13/24 12/13/24 22:59 06:59 14:59 Other: Weight 68.039 kg General, this is a well-developed, well-nourished white female in no acute distress. Her heart has a regular rhythm and rate without murmur. Her lungs clear to auscultation bilaterally in all verdin. Her abdomen is gravid, nondistended, has normal active bowel sounds, soft, nontender, and without any palpable masses aside from uterine fundus. Her extremities are without any cyanosis, clubbing, or significant edema and are nontender to palpation bilaterally. Digital cervical examination is deferred. Results Result Diagrams: 12/13/24 10:17 Abnormal Lab Results - Last 24 Hours (Table) 12/13/24 Range/Units 10:17 WBC 10.28 H (4.50-10.00) 10*3/uL RBC 3.64 L (4.10-5.20) 10*6/uL Hgb 11.6 L (12.0-15.0) g/dL Hct 33.9 L (37.2-46.3) % Immature Gran # 0.06 H (0.00-0.04) 10*3/uL Assessment and Plan (1) Term Current Visit: Yes Status: Acute Code(s): Z34.90 - ENCNTR FOR SUPRVSN OF N ORMAL , UNSP, UNSP TRIMESTER SNOMED Code(s): 82848512 (2) IUGR (intrauterine growth restriction) Current Visit: Yes Status: Acute Code(s): YYX0024 - SNOMED Code(s): 71602741 (3) Symphysis pubis rupture Current Visit: Yes Status: Acute Code(s): S33.4XXA - TRAUMATIC RUPTURE OF SYMPHYSIS PUBIS, INITIAL ENCOUNTER SNOMED Code(s): 920555434 Plan: Patient has been admitted for primary elective low-transverse section. The risks and complications have been thoroughly discussed and she has understood and agreed to proceed.
[2024-12-13] MEDS ORDERED: ONDANSETRON 4 MG/2 ML VIAL ONE (12:12)
[2024-12-13] MEDS ORDERED: MIDAZOLAM 2 MG/2 ML VIAL ONE (12:12)
[2024-12-13] MEDS ORDERED: MORPHINE SULFATE (PF) 0.3 MG/0.3 ML SYR ONE (12:12)
[2024-12-13] MEDS ORDERED: NALBUPHINE (ANES) 10 MG/ML - 1 ML AMP ONE (12:12)
[2024-12-13] MEDS ORDERED: KETOROLAC 15 MG/ML 1 ML VIAL ONE (12:12)
[2024-12-13] MEDS ORDERED: OXYTOCIN 30 UNITS/500 ML NS BAG IV ONE (12:12)
[2024-12-13] MEDS ORDERED: LANOLIN CREAM 1 GM TUBE TOPICAL PRN (13:09)
[2024-12-13] MEDS ORDERED: diphenhydrAMINE 50 MG/ML 1 ML VIAL IVP PRN ×2 (13:09)
[2024-12-13] MEDS ORDERED: SIMETHICONE 80 MG CHEWABLE PO PRN (13:09)
[2024-12-13] MEDS ORDERED: diphenhydrAMINE 25 MG CAP PO PRN (13:09)
[2024-12-13] MEDS ORDERED: METOCLOPRAMIDE 5 MG/ML 2 ML VIAL IVP PRN (13:09)
[2024-12-13] MEDS ORDERED: ONDANSETRON 4 MG/2 ML VIAL IVP PRN (13:09)
[2024-12-13] MEDS ORDERED: diphenhydrAMINE 50 MG CAP PO PRN (13:09)
[2024-12-13] MEDS ORDERED: NALOXONE 0.4 MG/ML 1 ML VIAL IV PRN (13:09)
[2024-12-13] MEDS ORDERED: ZOLPIDEM 5 MG TAB PO PRN (13:09)
[2024-12-13] MEDS ORDERED: OXYTOCIN 30 UNITS/500 ML NS 30 UNIT in SALINE 1 500ML.BAG IV SCH (13:15)
--- NOTE | 2024-12-13 13:17 | P.OP ---
Date of Procedure: 12/13/24 Preoperative Diagnosis: #1. 38-0/7 weeks, intrauterine growth restriction #2. History of symphyseal fracture and ligament damage Postoperative Diagnosis: Same Procedure(s) Performed: #1. Elective primary low-transverse section Anesthesia: spinal Surgeon: Zay Clarke Compliance Officer #1: Shilpa Loving Estimated Blood Loss (ml): 225 IV fluids (ml): 1,000 Urine output (ml): 200 Pathology: other (Placenta) Condition: stable Disposition: floor Operative Findings: See dictated H&P for findings leading to section. The patient was taken to the operating room where she was delivered by primary low-transverse section of a viable 5 pound 10 ounce baby girl with Apgars of 9 at 1 minute and 9 at 5 minutes in the occiput anterior position. The placenta was delivered manually, intact, grossly normal with a grossly normal three-vessel cord. The uterus, tubes, and ovaries were entirely normal to inspection. Description of Procedure: The patient was prepped and draped in usual fashion after spinal anesthesia was administered by the anesthesiologist. A Pfannenstiel incision was made and extended into the abdominal cavity without difficulty. The bladder peritoneum was significantly distal to intended site of incision and was left intact. A 2 cm incision was made the transverse plane of the lower uterine segment to enter the uterus at which time clear fluid was noted. The incision was extended both directions using the bandage scissors. The head was delivered up and through the incision where the nose and mouth were thoroughly suctioned. The remainder of the infant was delivered onto the field where the cord was doubly clamped, cut, and the infant passed for resuscitative measures with weight and Apgars as noted above. cord blood was collected per protocol secondary to Rh negativity. The placenta was delivered manually and intact as noted above. The uterus was exteriorized and the anterior cavity the uterus swept of any remaining placental or membranous fragments. The margins of the uterine incision were grasped with Wade clamps and the incision closed in 2 layers. The first layer was a running locking stitch of 0 chromic catgut followed by a running imbricating stitch of 0 chromic catgut, each from margin to margin. There was some ongoing bleeding noted in the right center of the incision which was made hemostatic with a [id number] stitch of 0 chromic catgut. The posterior cul-de-sac was suctioned with a guard followed by laparotomy sponge. The uterine and ovarian findings were normal as noted above. The uterus was replaced within the abdominal cavity and the gutters swept of any remaining blood, fluid, or clot. After confirming hemostasis, the parietal peritoneum was loosely reapproximated and the layer of muscles examined and found to be hemostatic. The fascia was closed with a single running stitch of 0 Vicryl proceeding from margin to margin. The subcutaneous tissues were made hemostatic with the Bovie and then reapproximated with a running stitch of 3-0 plain catgut. The skin was reapproximated with a running subcuticular stitch of 4-0 Vicryl from margin to margin. This was followed with half-inch Steri-Strips placed with Mastisol. Quantitative blood loss for the entire case was 225 mL. There were no complications. All sponge, instrument, and needle counts were correct. The patient tolerated the procedure well and proceeded to the recovery room in stable condition. Both mother and are resting comfortably in recovery though the has been taken to the nursery for further observation secondary to a slightly irregular heartbeat.
[2024-12-13] MEDS: KETOROLAC 15 MG/ML 1 ML VIAL IVP PRN (21:32)
[2024-12-13] MEDS: SENNOSIDES-DOCUSATE SODIUM 1 EACH TAB PO SCH (21:34)
[2024-12-13] MEDS: Rhogam IMMUNE GLOBULIN 1,500 UNIT/1 ML IM ONE (23:08)
[2024-12-14] MEDS: ACETAMINOPHEN TAB 500 MG TAB PO SCH (00:46)
[2024-12-14 05:59] LABS: Basophils # (A) 0.03 10*3/uL (0.00-0.10); Basophils % (A) 0.3 %; Eosinophils # (A) 0.03 10*3/uL (0.04-0.35); Eosinophils % (A) 0.3 %; HCT 32.3 % (37.2-46.3); HGB 11.1 g/dL (12.0-15.0); Lymphocytes # (A) 1.49 10*3/uL (0.90-5.00); Lymphocytes % (A) 12.8 %; MCH 32.3 pg (27.0-32.0); MCHC 34.4 g/dL (32.0-37.0); MCV 93.9 fL (80.0-97.0); Mean Platelet Volume 11.4 fL (9.5-12.2); Monocytes # (A) 0.69 10*3/uL (0.20-1.00); Monocytes % (A) 5.9 %; Neutrophils # (A) 9.36 10*3/uL (1.80-7.70); Neutrophils % (A) 80.4 %; Platelet Count 179 10*3/uL (140-440); RBC 3.44 10*6/uL (4.10-5.20); RDW 11.5 % (11.5-14.5); WBC 11.64 10*3/uL (4.50-10.00)
--- NOTE | 2024-12-14 06:34 | P.PN ---
Progress Note - Text Progress Note Date: 12/14/24 S/P C/S with spinal duramorph. POD #1. Pain control is adequate. No anesthesia related complications.
[2024-12-14 08:29] VITALS: RESP 16
--- NOTE | 2024-12-14 08:39 | P.PNOBGPC ---
Subjective - Subjective Patient reports: Reports appetite normal, Reports voiding normally, Reports pain well controlled, Reports ambulating normally : doing well Objective - Vital Signs Latest vital signs: Vital Signs Temp Pulse Resp BP Pulse Ox 12/14/24 08:27 98 F 66 16 101/60 12/14/24 01:12 98.1 F 73 36 H 109/70 12/13/24 17:12 97.4 F L 58 L 16 104/64 12/13/24 15:12 96 F L 57 L 16 101/62 12/13/24 14:55 67 16 100/55 97 12/13/24 14:42 59 L 16 103/55 97 12/13/24 14:27 60 16 106/60 97 12/13/24 14:12 60 16 103/66 98 12/13/24 13:57 60 16 102/63 97 12/13/24 13:42 63 16 96/60 12/13/24 13:27 65 16 113/61 96 12/13/24 13:12 66 16 105/59 95 12/13/24 10:30 97.3 F L 71 16 107/65 97 Intake and Output 12/13/24 12/14/24 12/14/24 22:59 06:59 14:59 Intake Total 2500 Output Total 650 Balance -650 2500 Intake: Oral 2500 Output: Urine 650 Uretheral (Ayoub) 450 Other: # Voids 1 - Exam Extremities: Present: normal Abdomen: Present: normal appearance, soft. Absent: distention, tenderness Incision: Present: normal, dry, intact Uterus: Present: normal, firm (The uterine fundus is tonic and minimally tender well below the umbilicus.) - Labs Labs: Abnormal Lab Results - Last 24 Hours (Table) 12/13/24 12/14/24 Range/Units 10:17 05:29 WBC 10.28 H 11.64 H (4.50-10.00) 10*3/uL RBC 3.64 L 3.44 L (4.10-5.20) 10*6/uL Hgb 11.6 L 11.1 L (12.0-15.0) g/dL Hct 33.9 L 32.3 L (37.2-46.3) % MCH 32.3 H (27.0-32.0) pg Immature Gran # 0.06 H (0.00-0.04) 10*3/uL Neutrophils # 9.36 H (1.80-7.70) 10*3/uL Eosinophils # 0.03 L (0.04-0.35) 10*3/uL Assessment and Plan (1) Term Current Visit: Yes Status: Acute Code(s): Z34.90 - ENCNTR FOR SUPRVSN OF NORMAL , UNSP, UNSP TRIMESTER SNOMED Code(s): 01015813 (2) IUGR (intrauterine growth restriction) Current Visit: Yes Status: Acute Code(s): TFW3300 - SNOMED Code(s): 19942215 (3) Symphysis pubis rupture Current Visit: Yes Status: Acute Code(s): S33.4XXA - TRAUMATIC RUPTURE OF SYMPHYSIS PUBIS, INITIAL ENCOUNTER SNOMED Code(s): 752142960 (4) S/P section Current Visit: Yes Status: Acute Code(s): Z98.891 - HISTORY OF UTERINE SCAR FROM PREVIOUS SURGERY SNOMED Code(s): 823036578 Plan: Continue routine and postoperative care. I have encouraged the patient ambulate in the hallways routinely. I would anticipate discharge home tomorrow pending no complications.
[2024-12-14] MEDS: IBUPROFEN 800 MG TAB PO SCH (12:19)
--- NOTE | 2024-12-15 08:34 | P.DS ---
Providers Date of admission: 12/13/24 09:37 Expected date of discharge: 12/15/24 Attending physician: Zay Clarke Primary care physician: Stated None - Discharge Diagnosis(es) (1) Term Current Visit: Yes Status: Acute (2) IUGR (intrauterine growth restriction) Current Visit: Yes Status: Acute (3) Symphysis pubis rupture Current Visit: Yes Status: Acute (4) S/P section Current Visit: Yes Status: Acute Hospital Course: The patient is a 24-year-old 2 para 1-0-0-1 admitted at 38-0/7 weeks by good dating parameters. She is admitted for elective primary section having had a history of a previous symphyseal separation with her first delivery. She additionally was discovered to have intrauterine growth restri ction in the third trimester and had twice weekly reassuring testing from the time of diagnosis though her follow-up was somewhat spotty for this. She is Rh- and received RhoGAM at 28 weeks. On labor delivery, all signs were reassuring and group B strep status is negative. She was taken to the operating room where she underwent primary low-transverse section in an uncomplicated fashion and was delivered of a viable 5 pound 10 ounce baby girl with Apgars of 9 at 1 minute and 9 at 5 minutes. Her and postoperative course was unremarkable with vital signs remaining stable and her temperature was afebrile throughout. She was deemed stable for discharge on and postoperative day #2 and was discharged home to follow-up in the office in 2 weeks for an incision check in 6 weeks routinely. Discharge instructions included calling for any significantly increased bleeding or foul- smelling lochia, significantly increased fever or abdominal pain, perineal complaints, breast complaints, incisional complaints, or anything else that concerned her. She was additionally instructed to have nothing in the vagina for at least 6 weeks time to include intercourse and to abstain from any heavy lifting over the same period of time. She was lastly instructed to do no driving until off of all pain medications or 2 weeks time, whichever came first. She understood all of her instructions and agrees to follow-up as noted above. Discharge medications included continued vitamins as she has opted to breast-feed. She was additionally to use ksny-ulq-xpymwwu analgesic pain medications and declined a prescription for any narcotics. Maternal blood type is O- and cord blood was sent for evaluation for the necessity of RhoGAM prior to discharge. Discharge hemoglobin and hematocrit were 11.1 and 32.3 respectively. Procedures: #1. Elective primary low-transverse section Patient Condition at Discharge: Stable Plan - Discharge Summary New Discharge Prescriptions: No Action Iji-Ehea-Ovqee Acid [-U Capsule (formulary)] 1 cap PO DAILY Discharge Medication List Dzs-Luvg-Mrfem Acid [-U Capsule (formulary)] 1 cap PO DAILY 05/25/23 [History] Follow up Appointment(s)/Referral(s): Zay Clarke MD [STAFF PHYSICIAN] - 12/28/24 11:00 am (Post Appointment 01-25-2025 at 1:00pm) Discharge Disposition: HOME SELF-CARE
[2024-12-15 09:31] VITALS: BP 105/67; PULSE 69; TEMP 97.6
== END 2024-12-15 12:30 | disposition home or self-care (01) | DRG 788 ==
LOC: 4FBP 09:37
PROVIDERS: ADMIT Obstetrics & Gynecology; ATTEND Obstetrics & Gynecology
PROC: 3E0234Z Introduction of Serum, Toxoid and Vaccine into Muscle, Percutaneous Approach (ICD-10-PCS; principal; 2024-12-13 12:00)
PROC: 10D00Z1 Extraction of Products of Conception, Low, Open Approach (ICD-10-PCS; principal; 2024-12-13 12:00)
DX: O36.5930 Maternal care for other known or suspected poor fetal growth, third trimester, not applicable or unspecified (principal); F31.9 Bipolar disorder, unspecified; O26.893 Other specified pregnancy related conditions, third trimester; O99.344 Other mental disorders complicating childbirth; Z37.0 Single live birth; Z67.41 Type O blood, Rh negative; Z87.81 Personal history of (healed) traumatic fracture; Z87.891 Personal history of nicotine dependence; Z3A.38 38 weeks gestation of pregnancy
CPT/HCPCS: 85025; 85461; 86850; 86870; 86900; 86901